=== PATIENT | female | born 1955 | race Caucasian/White ===

== ENCOUNTER → 2016-11-21 | Outpatient (CLI) | payer BC ==
--- NOTE | 2016-11-21 16:48 | DIAGNOSTIC IMAGING REPORT ---
RIGHT KNEE 1 OR 2 VIEWS ROUTINE CLINICAL HISTORY: Right knee pain. COMPARISON: None. DISCUSSION: There are minor degenerative changes. No fractures are visualized. No destructive lesions are evident. A trace joint effusion is suspected. IMPRESSION: Minor degenerative change. No fractures identified. Electronically signed by: Rios Porter M.D. 11/21/2016 4:47 PM Dictated Date/Time: 11/21/2016 4:47 PM
== END | disposition home or self-care (01) ==
LOC: C.RAD1850 16:33
PROVIDERS: ATTEND Nurse Practitioner Family
DX: M25.561 Pain in right knee (principal)